=== PATIENT | female | born 1950 | race Hispanic/Latino ===

== ENCOUNTER 2017-11-19 07:14 | Emergency (ER) | payer MEDICARE, MEDICAID ==
[2017-11-19 07:28] VITALS: RESP 18
--- NOTE | 2017-11-19 07:42 | C.PDOC ---
History Of Present Illness 67 y/o female presents to ED with c/o right hand pain and swelling. Patient states 3 days ago, she tripped and fell landing on hand. Patient has taking Tylenol and Motrin with no improvement. Patient states he is right hand dominant and denies loc, headache, nausea, vomiting, numbness to hand or any other complaints at this time. Chief Complaint (Nursing): Upper Extremity Problem/Injury History Per: Patient History/Exam Limitations: no limitations Onset/Duration Of Symptoms: Days Current Symptoms Are (Timing): Still Present Quality: "Pain" Past Medical History Reviewed: Historical Data, Nursing Documentation, Vital Signs Vital Signs: Last Vital Signs Temp 98.5 F 11/19/17 09:26 Pulse 78 11/19/17 09:26 Resp 18 11/19/17 09:26 BP 105/69 11/19/17 09:26 Pulse Ox 98 11/19/17 09:26 - Medical History PMH: Hypercholesterolemia Surgical History: No Surg Hx Family History: States: No Known Family Hx - Social History Hx Tobacco Use: Yes Hx Alcohol Use: No Hx Substance Use: No - Immunization History Hx Tetanus Toxoid Vaccination: No Hx Influenza Vaccination: No Hx Pneumococcal Vaccination: No Review Of Systems Except As Marked, All Systems Reviewed And Found Negative. Musculoskeletal: Positive for: Hand Pain (right) Physical Exam - Physical Exam Appears: Non-toxic, No Acute Distress Skin: Warm, Dry, No Rash Head: Atraumatic, Normacephalic Eye(s): bilateral: Normal Inspection Oral Mucosa: Moist Cardiovascular: Rhythm Regular Respiratory: Normal Breath Sounds, No Rales, No Rhonchi, No Wheezing Gastrointestinal/Abdominal: Soft, No Tenderness, No Guarding, No Rebound Extremity: No Tenderness (no snuffbox tenderness), Capillary Refill (<2 seconds) , No Deformity, Swelling (dorsum of right hand ), Other (Right hand decreased ROM to fingers secondary to pain) Neurological/Psych: Oriented x3, Normal Speech, Normal Motor, Normal Sensation ED Course And Treatment O2 Sat by Pulse Oximetry: 99 (RA) Pulse Ox Interpretation: Normal Medical Decision Making Medical Decision Making: Impression: Right hand Dominant Plan: Right wrist and hand xray to rule out fracture Progress: xray did not show fracture, patient discharged with follow up to clinic in 1-2 days. Patient instructed to take pain medication when pain develops, agrees with plan. Disposition - Disposition Referrals: Shirley Chery MD [Staff Provider] - Disposition: HOME/ ROUTINE Disposition Time: 09:26 Condition: GOOD Additional Instructions: Follow up with hand clinic in a few days. Call Dr Chery's office for an appointment. Take motrin as dierected, apply ice and elevate limb. Prescriptions: Ibuprofen [Motrin] 600 mg PO Q6 #20 tab Instructions: Contusion (DC) Forms: [employer] ([place]) - Clinical Impression Clinical Impression: Contusion - Scribe Statement The provider has reviewed the documentation as recorded by the Scribad Hammer All medical record entries made by the Scribe were at my direction and personally dictated by me. I have reviewed the chart and agree that the record accurately reflects my personal performance of the history, physical exam, medical decision making, and the department course for this patient. I have also personally directed, reviewed, and agree with the discharge instructions and disposition.
--- NOTE | 2017-11-19 07:43 | C.PDOC ---
Chief Complaint (Nursing): Upper Extremity Problem/Injury Past Medical History Vital Signs: Last Vital Signs Temp 98.1 F 11/19/17 07:19 Pulse 92 H 11/19/17 07:19 Resp 18 11/19/17 07:19 BP 125/73 11/19/17 07:19 Pulse Ox 99 11/19/17 07:19 - Medical History PMH: Hypercholesterolemia Family History: States: Unknown Family Hx - Social History Hx Tobacco Use: Yes Hx Alcohol Use: No Hx Substance Use: No - Immunization History Hx Tetanus Toxoid Vaccination: No Hx Influenza Vaccination: No Hx Pneumococcal Vaccination: No ED Course And Treatment O2 Sat by Pulse Oximetry: 99 Disposition - Disposition
--- NOTE | 2017-11-19 08:25 | RAD ---
Date of service: 11/19/2017 PROCEDURE: Right Wrist Radiographs. HISTORY: right wrist pain s/p fall COMPARISON: None. FINDINGS: BONES: No acute fracture. Mild bulbous prominence of the radial styloid state due to developmental variation and/or old remote trauma. JOINTS: . No dislocation. 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 The radiocarpal joint space also appears narrowed. SOFT TISSUES: Normal. OTHER FINDINGS: None. IMPRESSION: No acute fracture or dislocation Other findings as above.
--- NOTE | 2017-11-19 08:28 | RAD ---
PROCEDURE: Right Hand Radiographs. HISTORY: pain and swelling s/p fall COMPARISON: None. FINDINGS: BONES: Normal. No fracture. JOINTS: First metacarpal phalangeal joint and an diffuse distal interphalangeal joint arthrosis OTHER FINDINGS: Dorsal soft tissue swelling -meta carpal head level IMPRESSION: No fracture or dislocation. Soft tissue swelling Arthrosis
[2017-11-19 09:27] VITALS: BP 105/69; PULSE 78; TEMP 98.5
[2017-11-25 09:48] VITALS: O2SAT 99
== END 2017-11-19 09:20 | disposition home or self-care (01) ==
LOC: C.ER 07:14
DX: T14.8XXA Other injury of unspecified body region, initial encounter (principal); W01.0XXA Fall on same level from slipping, tripping and stumbling without subsequent striking against object, initial encounter; E78.00 Pure hypercholesterolemia, unspecified; Z72.0 Tobacco use